=== PATIENT | female | born 1940 | race Caucasian/White ===

== ENCOUNTER 2016-08-06 06:31 | Emergency (ER) | payer MEDICARE ==
--- NOTE | 2016-08-06 07:46 | ER Document Report ---
ED Neck/Back Problem - General Mode of Arrival: Ambulatory Information source: Patient - HPI Patient complains to provider of: Lower back Onset: Just prior to arrival Quality of pain: Achy - spasm Severity: None Recent injury: Possibly Associated symptoms: None <BRIGIDA ABREU - Last Filed: 08/06/16 13:03> <ESTEFANY PICKERING - Last Filed: 08/12/16 22:41> - General Chief Complaint: Back Pain Stated Complaint: BACK PAIN Time Seen by Provider: 08/06/16 06:59 Notes: Patient is a 75-year-old female who presents to the emergency department today with complaints of back pain. Patient states 2 weeks ago she fell in her garden but had no back pain after this. Patient states for the last 2 days she has had low back pain with the left side hurting a little more than the right. Patient states her back pain feels like muscle spasms. Patient states she does have a history of kidney stones and has noticed that she has had decreased urine output. Patient complains of nausea but denies any vomiting. Patient denies any radiation down her legs, diarrhea, cough, shortness of breath, or chest pain. (BRIGIDA ABREU) - Related Data Allergies/Adverse Reactions: Sulfa (Sulfonamide Antibiotics) Allergy (Verified 08/06/16 06:37) Past Medical History - General Information source: Patient - Social History Smoking Status: Unknown if Ever Smoked Cigarette use (# per day): No Frequency of alcohol use: None Drug Abuse: None Lives with: Family Family History: Reviewed & Not Pertinent Renal/ Medical History: Reports: Hx Kidney Stones Surgical Hx: Negative <BRIGIDA ABREU - Last Filed: 08/06/16 13:03> Review of Systems - Review of Systems Constitutional: No symptoms reported EENT: No symptoms reported Cardiovascular: denies: Chest pain Respiratory: denies: Cough, Short of breath Gastrointestinal: See HPI, Nausea. denies: Diarrhea, Vomiting Genitourinary: See HPI, Other - Decreased urine production Female Genitourinary: No symptoms reported Musculoskeletal: See HPI, Back pain Skin: No symptoms reported Hematologic/Lymphatic: No symptoms reported Neurological/Psychological: No symptoms reported -: Yes All other systems reviewed and negative <BRIGIDA ABREU - Last Filed: 08/06/16 13:03> Physical Exam <BRIGIDA ABREU - Last Filed: 08/06/16 13:03> <ESTEFANY PICKERING - Last Filed: 08/12/16 22:41> - Vital signs Vitals: Temp Pulse Resp BP Pulse Ox 97.3 F 68 22 H 168/67 H 97 08/06/16 06:36 08/06/16 06:36 08/06/16 06:36 08/06/16 06:36 08/06/16 06:36 - Notes Notes: Physical Exam: General: Alert, appears well. HEENT: Normocephalic. Atraumatic. PERRL. Extraocular movements intact. Oropharynx clear. Neck: Supple. Non-tender. Respiratory: No respiratory distress. Clear and equal breath sounds bilaterally. Cardiovascular: Regular rate and rhythm. No pulsatile abdominal masses. Equal bilateral femoral pulses. Abdominal: Normal Inspection. Non-tender. No distension. Normal Bowel Sounds. Back: Non-tender. No deformity or step off. Extremities: Moves all four extremities. Upper extremities: Normal inspection. Normal ROM. Lower extremities: Normal inspection. No edema. Normal ROM. Neurological: Normal cognition. AAOx4. Normal speech. Psychological: Normal affect. Normal Mood. Skin: Warm. Dry. Normal color. (BRIGIDA ABREU) Course - Laboratory Result Diagrams: 08/06/16 07:56 08/06/16 07:56 <BRIGIDA ABREU - Last Filed: 08/06/16 13:03> - Laboratory Result Diagrams: 08/06/16 07:56 08/06/16 07:56 <ESTEFANY PICKERING - Last Filed: 08/12/16 22:41> - Vital Signs Vital signs: Temp Pulse Resp BP Pulse Ox 97.6 F 60 18 160/63 H 96 08/06/16 11:14 08/06/16 11:14 08/06/16 11:14 08/06/16 11:14 08/06/16 11:14 - Laboratory Laboratory results interpreted by ks: 08/06/16 08/06/16 07:56 09:03 Carbon Dioxide 20 L BUN 27 H Creatinine 1.52 H Est GFR ( Amer) 41 L Est GFR (Non-Af Amer) 34 L Glucose 171 H Urine Protein 30 H Urine Ascorbic Acid 20 H Discharge <BRIGIDA ABREU - Last Filed: 08/06/16 13:03> <ESTEFANY PICKERING - Last Filed: 08/12/16 22:41> - Discharge Clinical Impression: Low back pain Qualifiers: Chronicity: acute Back pain laterality: unspecified Sciatica presence: without sciatica Qualified Code(s): M54.5 - Low back pain Condition: Stable Disposition: HOME, SELF-CARE Additional Instructions: Low Back Pain Three out of every four people will have an episode of disabling back pain during their lifetime. Most commonly the pain is due to straining of the muscles and ligaments in the low back. Usual treatment includes: (1) Rest on a firm surface. Avoid lying on your stomach. (2) Ice pack the painful area. After a few days, gentle heat may be used intermittently to relax the area, or ice packs can be continued. (3) Medication may be needed -- muscle relaxers and antiinflammatory medicines are commonly used. (4) As the back improves, exercises are prescribed to strengthen the back and abdominal muscles. Your doctor will advise you on the proper care for your back at each stage in your recovery. You may be better in a few days -- or healing may take several weeks. If new symptoms of a "herniated disc" (radiation of pain, numbness, or tingling down the back of the leg or weakness in the leg) occur, you should be re-examined. Further testing may be necessary. Muscle Relaxers Muscle relaxing medications are usually prescribed for acute muscle spasm or injury to the neck and back. They are often combined with antiinflammatory pain medication for increased relief. You may stop the muscle relaxer when the pain and stiffness have improved. Start the medication again if spasms recur. Muscle relaxers may cause drowsiness, especially with the first dose. Do not operate machinery or drive while under the effects of the medication. Most muscle relaxers last up to 24 hours. Do not combine the medication with alcohol. Follow up with your primary care physician in 2-3 days return for increasing worsening or new symptoms Prescriptions: Hydrocodone/Acetaminophen [[place] 5-325 mg Tablet] 1 tab PO QID PRN #12 tablet PRN Reason: Methocarbamol [Robaxin 500 mg Tablet] 500 mg PO BID #12 tablet Scribe Attestation: 08/06/16 10:43 I personally performed the services described in the documentation, reviewed and edited the documentation which was dictated to my scribe in my presence, and it accurately records my words and actions. (ESTEFANY PICKERING) Scribe Documentation - Scribe Written by Scribe:: Quentin Calderon, 08/06/2016 1315 acting as scribe for :: Obed <BRIGIDA ABREU - Last Filed: 08/06/16 13:03>
[2016-08-06] MEDS ORDERED: HYDROMORPHONE HCL INJ/PF 2 MG/ML AMPULE IM ONE (07:47)
[2016-08-06] MEDS ORDERED: DIAZEPAM 2 MG TABLET PO ONE (07:47)
[2016-08-06] MEDS ORDERED: FENTANYL CITRATE INJ/PF 100 MCG/2 ML AMPUL IV ONE ×2 (07:54→10:52)
[2016-08-06 08:11] LABS: ABSOLUTE EOSINOPHILS # (AUTO) 0.1 10^3/uL (0.0-0.6); ABSOLUTE LYMPHOCYTES (AUTO) 1.3 10^3/uL (0.5-4.7); ABSOLUTE MONOCYTES (AUTO) 0.4 10^3/uL (0.1-1.4); ABSOLUTE NEUT (AUTO) 5.4 10^3/uL (1.7-8.2); BASOPHILS % (AUTO) 0.5 % (0-2); EOSINOPHILS % (AUTO) 0.8 % (0-6); HEMATOCRIT 40.7 % (36.0-47.0); HEMOGLOBIN 13.5 g/dL (12.0-15.5); HGB HCT DIFFERENCE -0.2; LYMPHOCYTES % (AUTO) 18.2 % (13-45); MEAN CORPUSCULAR HEMOGLOBIN 29.6 pg (27.0-33.4); MEAN CORPUSCULAR HGB CONC 33.1 g/dL (32.0-36.0); MEAN CORPUSCULAR VOLUME 89 fl (80-97); MONOCYTES % (AUTO) 5.8 % (3-13); RED BLOOD COUNT 4.55 10^6/uL (3.72-5.28); RED CELL DISTRIBUTION WIDTH 13.4 % (11.5-14.0); SEGMENTED NEUTROPHILS % (AUTO) 74.7 % (42-78); WHITE BLOOD COUNT 7.3 10^3/uL (4.0-10.5)
[2016-08-06 08:27] LABS: ANION GAP 14 (5-19); BLOOD UREA NITROGEN 27 mg/dL (7-20); CARBON DIOXIDE 20 mmol/L (22-30); CHLORIDE 106 mmol/L (98-107); CREATININE RESULT 1.52 mg/dL (0.52-1.25); GLUCOSE 171 mg/dL (75-110); POTASSIUM 4.9 mmol/L (3.6-5.0); SODIUM 140.1 mmol/L (137-145)
--- NOTE | 2016-08-06 09:24 | RADIOLOGY REPORT (SQ) ---
EXAM DESCRIPTION: CT ABD/PELVIS NO ORAL OR IV COMPLETED DATE/TIME: 08/06/2016 8:53 am REASON FOR STUDY: flank pain history stone COMPARISON: None. TECHNIQUE: CT scan of the abdomen and pelvis performed without intravenous or oral contrast. Images reviewed with lung, soft tissue, and bone windows. Reconstructed coronal and sagittal MPR images revi ewed. All images stored on PACS. All CT scanners at this facility use dose modulation, iterative reconstruction, and/or weight based d osing when appropriate to reduce radiation dose to as low as reasonably achievable (ALARA). [facility]: Dose Right [facility]: CareDose [facility]: Dose Right [facility]: Teradose 4D [facility]: Smart [employer] RADIATION DOSE: Up-to-date CT equipment and radiation dose reduction techniques were employed. CTDIv ol: 5.7 mGy. DLP: 303 mGy-cm.mGy. LIMITATIONS: None. FINDINGS: LOWER CHEST: No significant findings. No nodules or infiltrates. NON-CONTRASTED LIVER, SPLEEN, ADRENALS: Evaluation limited by lack of IV contrast. No identified sign ificant masses. PANCREAS: No masses. No peripancreatic inflammatory changes. GALLBLADDER: No identified stones by CT criteria. No inflammatory changes to suggest cholecystitis. RIGHT KIDNEY AND URETER: No solid masses. No significant calcification. No hydronephrosis or hydroure ter. LEFT KIDNEY AND URETER: No solid masses. No significant calcification. No hydronephrosis or hydrouret er. AORTA AND RETROPERITONEUM: No aneurysm. No retroperitoneal masses or adenopathy. BOWEL AND PERITONEAL CAVITY: Extensive diverticular change seen of the sigmoid colon, without overt C T evidence diverticulitis. APPENDIX: Not seen PELVIS, BLADDER, AND ABDOMINAL WALL:No abnormal masses. No free fluid. Bladder normal. BONES: Scoliosis and arthritic changes lumbar spine. No acute compression fractures. OTHER: No other significant finding. IMPRESSION: No stone or hydronephrosis of either kidney. Extensive diverticular change sigmoid colon. No overt CT evidence diverticulitis. Scoliosis and extensive arthritic change lumbar spine. No acute compression fractures. TECHNICAL DOCUMENTATION: JOB ID: [id number] Quality ID # [id number]: Final reports with documentation of one or more dose reduction techniques (e.g., Au tomated exposure control, adjustment of the mA and/or kV according to patient size, use of iterative reconstruction technique) 2010 [employer]- All Rights Reserved
[2016-08-06 09:30] LABS: APPEARANCE,URINE CLEAR; BILIRUBIN,URINE NEGATIVE (NEGATIVE); GLUCOSE, URINE NEGATIVE (NEGATIVE); KETONES,URINE NEGATIVE (NEGATIVE); LEUKOCYTE ESTERASE,URINE NEGATIVE (NEGATIVE); NITRITE,URINE NEGATIVE (NEGATIVE); PROTEIN,URINE 30 mg/dL (NEGATIVE); URINE SPECIFIC GRAVITY 1.011; UROBILINOGEN,URINE NEGATIVE mg/dL (<2.0)
[2016-08-06 11:20] VITALS: BP 160/63
== END 2016-08-06 11:24 | disposition home or self-care (01) ==
LOC: ER 06:31
DX: M54.5 Low back pain (principal); R11.0 Nausea; Z88.2 Allergy status to sulfonamides; Z87.442 Personal history of urinary calculi
CPT/HCPCS: 96376; 99284; 96374; 36415; 85025; 80048; 81001; 74176; A9270; J3010; J3490